=== PATIENT | female | born 1970 | race Caucasian/White ===

== ENCOUNTER 2020-03-11 10:45 | Emergency (ER) | payer OTHER, SELFPAY ==
[2020-03-11 10:58] VITALS: BP 174/98; PULSE 84; RESP 20; TEMP 36.4; O2SAT 99
--- NOTE | 2020-03-11 11:04 | ED.ABDPAIN ---
HPI - Abdominal Pain General Chief Complaint: Abdominal Pain Stated Complaint: pain in upper right of abdomin Time Seen by Provider: 03/11/20 11:21 Source: patient and RN notes reviewed Mode of arrival: ambulatory Limitations: no limitations History of Present Illness HPI narrative: 49-year-old female presents with concern for acute right upper quadrant pain that she rates a 10 out of 10. Reports pain started today and is radiating to the right upper back. Reports she had diarrhea for 2 days, the abdominal pain started today. She also reports nausea with dry heaving. She denies fever, constipation, dysuria, frequency, urgency MD elicited complaint: abdominal pain Related Data Home Medications Medication Instructions Recorded Confirmed gabapentin 300 mg PO HS 03/11/20 03/11/20 lisinopril 20 mg PO DAILY 03/11/20 03/11/20 lovastatin 40 mg PO DAILY 03/11/20 03/11/20 metformin 1,000 mg PO BID 03/11/20 03/11/20 Allergies Allergy/AdvReac Type Severity Reaction Status Date / Time No Known Allergies Allergy Verified 03/11/20 11:19 Review of Systems Review of Systems: Narrative: CONSTITUTIONAL: Denies malaise, chills, sweats, or fever. CARDIOVASCULAR: Denies chest pain, palpitations, or edema. RESPIRATORY: Denies cough or dyspnea. GASTROINTESTINAL: Reports right upper quadrant abdominal pain, nausea, vomiting, diarrhea GENITOURINARY: Denies frequency, urgency, dysuria or hematuria. SKIN: Denies bruising, redness MUSCULOSKELETAL: Reports right upper back pain. Denies myalgia. All systems reviewed & are unremarkable except as noted in HPI and below PMFSH Comments At time of signature, agree with nursing past medical, surgical, social and family history. There is no relevant family history pertinent to the presenting complaint Exam Narrative: Exam Narrative: GENERAL: Well-appearing, well-nourished, and in no acute distress. HEAD: Normocephalic EYES: PERRLA, conjunctivae clear, and EOMI. ENT: Mucous membranes moist. NECK: Supple. CHEST: Speaks in full sentences. No respiratory distress. HEART: Regular rate and rhythm. ABDOMEN: Obese. Guarded, right upper quadrant tenderness no pulsatilla masses. Bowel sounds present in all four quadrants. SKIN: Warm, dry NEURO: Alert and oriented x3. PSYCH: Normal mood and affect Course Course Emergency Course: Patient is aware of, understands and agrees to reasons to be seen in the emergency department. Patient agrees to proceed directly to the emergency department. Portions of this record may have been created with voice recognition software Vital Signs Vital signs: Vital Signs Temperature 97.5 F L 03/11/20 10:58 Pulse Rate 84 03/11/20 10:58 Respiratory Rate 20 03/11/20 10:58 Blood Pressure 174/98 H 03/11/20 10:58 Pulse Oximetry 99 03/11/20 10:58 Temperature 97.5 F L 03/11/20 10:58 Pulse Rate 84 03/11/20 10:58 Respiratory Rate 20 03/11/20 10:58 Blood Pressure 174/98 H 03/11/20 10:58 Pulse Oximetry 99 03/11/20 10:58 Reviewed. Patient has been instructed to follow up with her primary care provider within the next week regarding her elevated blood pressure today. Transfer Transfered to: [facility] Transportation: Other (Private vehicle) Transfer rationale: Right upper quadrant abdominal pain, nausea and vomiting Accepting physician: Dr. Pichardo MDM - Abdominal Pain MDM Narrative Medical decision making narrative: Exam findings warrant further evaluation in the emergency; patient is non-toxic appearing and is in no distress. Patient is appropriate for transfer via private vehicle Critical Care Time Critical Care Time Critical Care Time: No Discharge Plan Discharge Clinical Impression: Right upper quadrant abdominal pain Patient Disposition: Acute Care Hospital Condition: Stable Additional Instructions: Your blood pressure was elevated above 120/80 today at [facility]. This puts you above the threshold for fo
[2020-03-11] MEDS: ONDANSETRON HCL ODT 4 MG TABLET PO (11:37)
--- NOTE | 2020-03-11 11:37 | PC.NURSE ---
NO URINE CULTURE PER PROVIDER. PATIENT SENT TO -[facility]. ILANA RT(R)
== END 2020-03-11 11:43 | disposition short-term general hospital (02) ==
PROVIDERS: Emergency Provider Nurse Practitioner; PCP Internal Medicine
DX: R10.11 Right upper quadrant pain (principal); G25.81 Restless legs syndrome; E78.00 Pure hypercholesterolemia, unspecified; I10 Essential (primary) hypertension; E11.9 Type 2 diabetes mellitus without complications
CPT/HCPCS: 81003; 99213; A9270; G0463

== ENCOUNTER 2024-07-26 14:48 | Emergency (ER) | payer OTHER, SELFPAY ==
--- NOTE | ~2024-07-26 | XR_ITS ---
XR knee LT min 4V Ordering provider: Eleonora Dunne APRN History: . fall, pain . Comparison: None. FINDINGS: BONES: Longitudinal Fracture of the lateral patella is noted. Bipartite patella is less likely. Lucen cy in the lateral femoral condyle is seen in the patella lateral view. Definite fracture cannot be co nfirmed. Follow-up advised. JOINT SPACES: Mild degenerative changes with marginal osteophytes. SOFT TISSUES: Normal. IMPRESSION: Fracture of the lateral patella. Clinical correlation and follow-up advised. Reviewed, dictated and finalized at location A. [employer]
[2024-07-26 15:01] VITALS: BP 123/70; PULSE 76; RESP 20; TEMP 36.4; O2SAT 98
--- NOTE | 2024-07-26 15:04 | ED.LOWEXIN ---
HPI - Extremity Injury (Lower) General Chief Complaint: Extremity Injury, Lower Stated Complaint: Fall Injury/Left Knee Time Seen by Provider: 07/26/24 15:04 Source: patient Mode of arrival: ambulatory Limitations: no limitations History of Present Illness HPI Narrative: 53-year-old female presented for complaint of left knee pain for 8 days. Pain started after she fell. She states she tripped and struck the knee on a concrete basement floor. Has continued to ambulate without difficulty but reports pain. Taking ibuprofen. Denies numbness tingling, weakness. Related Data Home Medications ?Medication ?Instructions ?Recorded ?Confirmed ?Last Taken ?Type gabapentin 300 mg tablet 300 mg PO HS 03/11/20 07/26/24 Unknown History lisinopril 20 mg tablet 20 mg PO DAILY 03/11/20 07/26/24 Unknown History lovastatin 40 mg tablet 40 mg PO DAILY 03/11/20 07/26/24 Unknown History metformin 1,000 mg tablet 1,000 mg PO BID 03/11/20 07/26/24 Unknown History albuterol sulfate 90 mcg/actuation inhalation 07/26/24 Unknown History aerosol inhaler budesonide-formoterol HFA 160 inhalation 07/26/24 Unknown History mcg-4.5 mcg/actuation aerosol inhaler (Symbicort) bupropion HCl 150 mg 24 hr tablet, mg PO 07/26/24 Unknown History extended release buspirone 5 mg tablet mg 07/26/24 Unknown History celecoxib 100 mg capsule mg 07/26/24 Unknown History dulaglutide 1.5 mg/0.5 mL mg subcut 07/26/24 Unknown History subcutaneous pen injector (Trulicity) famotidine 20 mg tablet mg 07/26/24 Unknown History fluoxetine 20 mg capsule mg 07/26/24 Unknown History gabapentin 400 mg capsule mg 07/26/24 Unknown History levothyroxine 50 mcg tablet mcg 07/26/24 Unknown History omeprazole 20 mg capsule,delayed mg 07/26/24 Unknown History release oxybutynin chloride 5 mg tablet mg 07/26/24 Unknown History rosuvastatin 10 mg tablet mg 07/26/24 Unknown History Allergies Allergy/AdvReac Type Severity Reaction Status Date / Time No Known Allergies Allergy Verified 07/26/24 15:01 Review of Systems Review of Systems: CONSTITUTIONAL: Denies body aches, fever, chills CARDIOVASCULAR: Denies chest pain, palpitations, or edema. RESPIRATORY: Denies cough or dyspnea. GASTROINTESTINAL: Denies abdominal pain, nausea, vomiting, or diarrhea. SKIN: Denies rash, itching, or wounds. MUSCULOSKELETAL: reports left knee pain. NEUROLOGIC: Denies numbness, tingling, or weakness. All systems reviewed & are unremarkable except as noted in HPI and below PMFSH Past Medical History Medical History (Updated 07/26/24 @ 16:16 by Eleonora Dunne APRN) COPD (chronic obstructive pulmonary disease) Diabetes Comments At time of signature, I have reviewed and agree with nursing past medical, surgical, social and family history unless otherwise noted. Please see nursing chart for further information. There is no relevant family history pertinent to the presenting complaint Exam Narrative: GENERAL: Well-appearing CHEST: Speaks in full sentences. No respiratory distress. HEART: Regular rate and rhythm. Normal and equal peripheral pulses. EXTREMITIES: Patient is able to bear weight and ambulate with pain reported to the left knee. No bruising, erythema or warmth. Mild swelling noted and tenderness over the patella. Patient is able to tolerate full flexion, extension, internal and external rotation but reports pain to the knee. No tenderness over the infrapatellar tendon. No tenderness over the proximal fibular head. No quadriceps tenderness. Distal motor and neurovascular status intact. SKIN: Warm, dry, no rash. NEURO: Alert and oriented x3. PSYCH: flat affect, difficulty answering, drowsy; Mother in law answers most questions. Course Course Emergency Course: Patient is aware of diagnosis, understands and agrees to treatment plan. Anticipatory guidance given. Patient agrees to follow-up as directed and is aware of reasons to seek care at the emergency department. Portions of this record may have been created with voice recognition software Level of Care: Express Care Visit Vital Signs Vital signs: Vital Signs Temperature 97.6 F 07/26/24 15:01 Pulse Rate 76 07/26/24 15:01 Respiratory Rate 20 07/26/24 15:01 Blood Pressure 123/70 07/26/24 15:01 Pulse Oximetry 98 07/26/24 15:01 Oxygen Delivery Room Air 07/26/24 15:01 Temperature 97.6 F 07/26/24 15:01 Pulse Rate 76 07/26/24 15:01 Respiratory Rate 20 07/26/24 15:01 Blood Pressure 123/70 07/26/24 15:01 Pulse Oximetry 98 07/26/24 15:01 Oxygen Delivery Room Air 07/26/24 15:01 Reviewed MDM - Extremity Injury (Lower) MDM Narrative Medical decision making narrative: Discussed physical exam findings and x-ray, knee immobilizer and crutch training provided. Advised supportive measures and signs/symptoms to go to the ER. Pt is appropriate for outpt treatment and f/u. Differential Diagnosis Differential diagnosis: Likely other (osteoarthritis, patella dislocation, patellar tendonitis, tendon rupture, gout, bakers cyst, septic bursitis, dvt, tibial plateau fracture) Imaging Data Radiologist's impression: Patient: Aaliyah Cottrell : 1970 MR#: [id number] Age: 53 Acct:[id number] Loc: [facility] ADM Date: 07/26/24Attending Dr: Ordering Physician: Eleonora Dunne APRN Date of Service: 07/26/24 Procedure(s): XR knee LT min 4V Accession Number(s): [id number] cc: Chuckie, Patrick Walsh MD; Eleonora Dunne APRN~ XR knee LT min 4V Ordering provider: Eleonora Dunne APRN History: . fall, pain . Comparison: None. FINDINGS: BONES: Longitudinal Fracture of the lateral patella is noted. Bipartite patella is less likely. Lucency in the lateral femoral condyle is seen in the patella lateral view. Definite fracture cannot be confirmed. Follow-up advised. JOINT SPACES: Mild degenerative changes with marginal osteophytes. SOFT TISSUES: Normal. IMPRESSION: Fracture of the lateral patella. Clinical correlation and follow-up advised. Discharge Plan Discharge Clinical Impression: Left patella fracture Patient Disposition: Home, Self-Care Condition: Stable Instructions: Patellar Fracture (ED) Additional Instructions: Rest and elevate the left leg; bear weight as tolerated Apply ice 15-20 minutes several times a day Keep the knee immobilizer in place when walking, use the crutches when walking Motrin 800mg every 8 hours, alternate with Tylenol 1000mg every 8 hours as needed Follow up with the juvenile justice specialist, call tomorrow to schedule the appointment. Follow up with your primary care provider go to the ER for worsening symptoms or concerns Patient Language: [place] Prescriptions: New ibuprofen 800 mg tablet 800 mg PO TID PRN (Reason: pain) Qty: 15 0RF No Action buspirone 5 mg tablet gabapentin 400 mg capsule famotidine 20 mg tablet levothyroxine 50 mcg tablet omeprazole 20 mg capsule,delayed release(DR/EC) albuterol sulfate 90 mcg/actuation HFA aerosol inhaler INHALATION celecoxib 100 mg capsule oxybutynin chloride 5 mg tablet fluoxetine 20 mg capsule rosuvastatin 10 mg tablet bupropion HCl 150 mg tablet extended release 24 hr PO budesonide-formoterol [Symbicort] 160-4.5 mcg/actuation HFA aerosol inhaler INHALATION Trulicity 1.5 mg/0.5 mL pen injector SUBCUT lisinopril 20 mg Tablet 20 mg PO DAILY lovastatin 40 mg Tablet 40 mg PO DAILY Patient Comments: unsure if taking lovastatin or rosuvastatin, but does take cholest. med. metformin 1,000 mg Tablet 1,000 mg PO BID gabapentin 300 mg Tablet 300 mg PO HS Follow-up/Referrals: Chuckie,Patrick Walsh MD [Primary Care Provider] - Eddie Silvestre MD [Physician] - (Longitudinal Fracture of the lateral patella is noted. ) Time of Disposition: 16:08
--- OUTSIDE RECORDS SUMMARY | 2024-07-26 16:09 | XMS_ITS | Clinical Summary ---
Author Organization [facility] Address [address] [address] Phone Care Team Providers Care Helper Shear Operator Name Role Phone Tammy Grubbs MD Primary Care Provider [phone] Allergies No known active allergies Medications metFORMIN (GLUCOPHAGE) 500 MG Tablet Take 500 mg by mouth 2 times daily (with meals). Active lovastatin (MEVACOR) 40 MG Tablet Take 40 mg by mouth every evening. Active FLUoxetine (PROZAC) 20 MG Capsule Take 20 mg by mouth daily. Active lisinopril-hydro CHLOROthiazide (PRINZIDE, ZESTORETIC) 20-12.5 MG Tablet Take 1 Tab by mouth daily. Active levothyroxine (SYNTHROID) 25 MCG Tablet Take 50 mcg by mouth daily. Active TRUE METRIX BLOOD GLUCOSE TEST Strip 06/14/2017 Active gabapentin (NEURONTIN) 300 MG Capsule Take 300 mg by mouth 3 times daily. Active meloxicam (MOBIC) 15 MG Tablet Take 15 mg by mouth daily. Active omeprazole (PriLOSEC) 20 MG CAPSULE DELAYED RELEASE Take 20 mg by mouth daily. Active oxybutynin (DITROPAN) 5 MG Tablet Take 5 mg by mouth 2 times daily. Active Active Problems Problem Noted Date Diagnosed Date Morbid obesity with BMI of 40.0-44.9, adult 08/21 Ventral hernia without obstruction or gangrene 0 09/05/2017 Family History Medical History Relation Name Comments Diabetes Maternal Grandmother Cancer Mother Relation Name Status Comments Maternal Grandmother Mother Social History Tobacco Use Types Packs/Day Years Used Date Smoking Tobacco: Some Days Cigarettes Smokeless Tobacco: Never Tobacco Cessation:Ready to Q uit: No; Counseling Given: Yes Alcohol Use Standard Drinks/Week Comments No 0 (1 standard drink = 0.6 oz pur e alcohol) Comments No Sex and Gender Information Value Date Recorded Sex Assigned at Not on file Legal Sex Female 10:59 PM CDT Gender Identity Not on file Sexual Orientation Not on file Last Filed Vital Signs Vital Sign Reading Time Taken Comments Blood Pressure 124/80 09/05/2017 1:52 PM CDT Pulse 75 09/05/2017 1:52 PM CDT Temperature 36.6 C (97.8 F) 09/05/2017 1:52 PM CDT Respiratory Rate 18 09/05/2017 1:52 PM CDT Oxygen Saturation 98% 09/05/2017 1:52 PM CDT Inhaled Oxygen Concentration - - Weight 105.7 kg (233 lb) 09/05/2017 1:52 PM CDT Height 162.6 cm (5' 4 ) 09/05/2017 1:52 PM CDT Body Mass Index 39.99 09/05/2017 1:52 PM CDT Plan of Treatment Health Maintenance Due Date Last Done Comments Hepatitis C Virus (HCV) Screening 1970 Hepatitis B Immunization (1 of 3 - 19+ 3-dose series) 1988 Pap Smear 1990 Cervical Cancer Screening (CCS) 11/27/1999 HPV/Cotest 11/27/1999 Colonoscopy 2014 Colorectal Cancer Screening 2014 Cologuard 11/27/2019 Immunochemical Fecal Occult Blood 11/27/2019 Mammogram 11/27/2019 Pneumococcal Immunization (50+ years) (2 of 2 - PCV) 11/27/2019 05/08/2015 Zoster Immunization (1 of 2) 11/27/2019 Influenza Immunization (#1) 01/22/202405/23, 03/18/2017, 03/15/2016, Additional history exists SARS-COV-2 Immunization ( season) 2024 11/20/2020, 10/28/2020 Respiratory Syncytial Virus (RSV) Immunization (Adult) (1 - 1-dose 75+ series) 2044 Pneumococcal Immunization Combined Discontinued 05/08/2015 DTaP/Tdap/Td Immunization Discontinued 01/26/2018 TdaP Immunization Completed 01/26/2018 Meningococcal Immunization (ACWY) Aged Out No longer eligible based on patient's age to complete this topic Rotavirus Immunization Aged Out No lo nger eligible based on patient's age to complete this topic Insurance [place]ICAID [place] Care Teams Helper Shear Operator Relationship Specialty Start Date End Date Tammy Grubbs MD [address] [place] [address] PCP - General Internal Medicine 09/05/17
== END 2024-07-26 16:37 | disposition home or self-care (01) ==
PROVIDERS: Emergency Provider Nurse Practitioner Family; PCP Family Medicine
DX: S82.002A Unspecified fracture of left patella, initial encounter for closed fracture (principal); W01.0XXA Fall on same level from slipping, tripping and stumbling without subsequent striking against object, initial encounter; J44.9 Chronic obstructive pulmonary disease, unspecified; E11.9 Type 2 diabetes mellitus without complications; Z79.84 Long term (current) use of oral hypoglycemic drugs
CPT/HCPCS: 73564; 99214; G0463; L1830